=== PATIENT | male | born 1955 | race Caucasian/White ===

== ENCOUNTER → 2017-12-02 | Outpatient (CLI) | payer BC ==
[2014-03-28 08:40] VITALS: BP 155/103
[~2017-12-02] MED LIST: ALBUTEROL0.09 MG/A4 IH; DYAZIDE 25 MG-31 CAP PO; PRILOSEC 20MG20 MG PO; SINGULAIR10 MG PO; TYLENOL 325MG325 MG PO; ZOCOR 40MG40 MG PO
== END ==
LOC: RAD 09:31
DX: N32.89 Other specified disorders of bladder (principal); R79.89 Other specified abnormal findings of blood chemistry

== ENCOUNTER → 2018-01-04 | Outpatient (CLI) | payer BC ==
[~2018-01-04] VITALS: Ht 170.2 cm; Wt 88.2 kg
[~2018-01-04] MED LIST changes: +REVATIO20 MG PO
[2018-01-04 10:25] VITALS: BP 120/76
== END ==
LOC: AMSURD 09:20
DX: Z00.00 Encounter for general adult medical examination without abnormal findings (principal)

== ENCOUNTER → 2018-01-18 | Day surgery (SDC) | payer BC ==
[2018-01-04 10:25] VITALS: BP 120/76
== END ==
LOC: MSO 08:40
DX: Z12.11 Encounter for screening for malignant neoplasm of colon (principal); D12.5 Benign neoplasm of sigmoid colon; I10 Essential (primary) hypertension; J45.909 Unspecified asthma, uncomplicated; G47.33 Obstructive sleep apnea (adult) (pediatric); K21.9 Gastro-esophageal reflux disease without esophagitis; Z79.899 Other long term (current) drug therapy
CPT/HCPCS: 00811; J2704; J3010; J7120

== ENCOUNTER → 2021-07-15 | Outpatient (CLI) | payer OTHER | LOC: LAB 16:58 | DX: Z02.83 Encounter for blood-alcohol and blood-drug test (principal) ==

== ENCOUNTER → 2023-06-25 | Outpatient (CLI) | payer BC, MEDICARE | LOC: LAB 09:18 | DX: R31.29 Other microscopic hematuria (principal) ==

== ENCOUNTER → 2023-10-05 | Day surgery (SDC) | payer BC, MEDICARE ==
[~2023-10-05] MED LIST changes: +AMLODIPINE BESYL5 MG PO; +Lidocaine PF 2% (20 MG/ML) 5 ML VIAL ONE
== END | disposition home or self-care (01) ==
LOC: MSO 08:01
DX: D50.9 Iron deficiency anemia, unspecified (principal); Z86.2 Personal history of diseases of the blood and blood-forming organs and certain disorders involving the immune mechanism; Z85.820 Personal history of malignant melanoma of skin
CPT/HCPCS: 00731; J2704; J7120

== ENCOUNTER → 2023-11-11 | Outpatient (CLI) | payer BC, MEDICARE ==
[~2023-11-11] MED LIST changes: -Lidocaine PF 2% (20 MG/ML) 5 ML VIAL ONE
== END ==
LOC: RAD 09:36
DX: I65.23 Occlusion and stenosis of bilateral carotid arteries (principal); C43.59 Malignant melanoma of other part of trunk

== ENCOUNTER 2023-12-01 05:55 | Emergency (ER) | payer BC, MEDICARE ==
[~2023-12-01] VITALS: Ht 172.7 cm; Wt 88.6 kg
[2023-12-01 06:37] LABS: BASO # 0.02 K/mm3 (0.02-0.10); EOS # 0.12 K/mm3 (0.04-0.40); EOS % 2.5 % (0.0-4.0); HEMATOCRIT 31.8 % (42.0-52.0); HEMOGLOBIN 10.4 g/dL (13.5-18.0); LYMPH# 0.71 K/mm3 (1.50-4.00); MEAN CELL VOLUME 83 fl (78-100); MEAN CORPUSCULAR HEMOGLOBIN 27 pg (27-31); MEAN CORPUSCULAR HGB CONC 33 g/dL (33-37); MONO # 0.56 K/mm3 (0.20-0.80); NEU # 3.31 K/mm3 (1.40-6.50); PLATELET COUNT 231 K/mm3 (130-400); RED BLOOD COUNT 3.84 M/mm3 (4.20-5.60); RED CELL DISTRIBUTION WIDTH 12.6 % (11.5-14.5); WHITE BLOOD COUNT 4.7 K/mm3 (4.8-10.8)
[2023-12-01] MEDS ORDERED: FLONASE ALLERG9.9 ML NS (06:44)
[2023-12-01] MEDS ORDERED: XALATAN 2.5 ML2.5 ML OU (06:45)
[2023-12-01] MEDS ORDERED: GLUCOSAMIN-CHO1 EACH PO (06:45)
[2023-12-01] MEDS ORDERED: NATURAL SAW PA160 MG PO (06:46)
[2023-12-01] MEDS ORDERED: BENZONATATE100 M2 PO (06:47)
[2023-12-01] MEDS ORDERED: LEVOFLOXACIN500 M1 PO (06:47)
[2023-12-01 06:48] LABS: ALBUMIN 3.9 g/dL (3.4-4.8)
[2023-12-01 06:49] LABS: SODIUM 134 mmol/L (136-145)
[2023-12-01 06:50] LABS: CALCIUM 9.5 mg/dL (8.3-10.5)
[2023-12-01 06:51] LABS: GLUCOSE 106 mg/dL (75-110); TOTAL PROTEIN 6.8 g/dL (6.2-8.1)
[2023-12-01 06:52] LABS: CARBON DIOXIDE 22 mmol/L (23-31)
[2023-12-01 06:53] LABS: TOTAL BILIRUBIN 0.6 mg/dL (0.2-1.2)
[2023-12-01 06:56] LABS: AST-SGOT 54 U/L (5-34)
[2023-12-01 06:57] LABS: ALT/SGPT 53 U/L (0-55)
[2023-12-01 07:03] LABS: TROPONIN-I < 0.030 ng/mL (0.00-0.033)
[2023-12-01] MEDS ORDERED: Iohexol 350 - 100 ML VIAL IV ONE (07:03)
[2023-12-01 09:00] VITALS: BP 127/72
== END 2023-12-01 09:00 | disposition home or self-care (01) ==
LOC: ED 05:55
PROVIDERS: Physician Assistant
DX: R06.02 Shortness of breath (principal); C43.9 Malignant melanoma of skin, unspecified
CPT/HCPCS: Q9967

== ENCOUNTER → 2024-05-11 | Outpatient (CLI) | payer OTHER, MEDICARE ==
[~2024-05-11] MED LIST changes: +BENZONATATE100 M2 PO; +FLONASE ALLERG9.9 ML NS; +GLUCOSAMIN-CHO1 EACH PO; +Iohexol 300 - 100 ML VIAL IV ONE; +LEVOFLOXACIN500 M1 PO; +NATURAL SAW PA160 MG PO; +NS 100 ML IV ONE; +XALATAN 2.5 ML2.5 ML OU
== END ==
LOC: RAD 11:30
DX: N40.0 Benign prostatic hyperplasia without lower urinary tract symptoms (principal); N32.89 Other specified disorders of bladder; C43.59 Malignant melanoma of other part of trunk
CPT/HCPCS: Q9967